=== PATIENT | female | born 2000 | race Caucasian/White ===

== ENCOUNTER 2025-10-07 21:58 | Emergency (ER) | payer OTHER, MEDICAID ==
[~2025-10-07] VITALS: Ht 157.5 cm; Wt 106.4 kg
[2025-10-07] MEDS: predniSONE 20 MG TAB PO ONE (22:48)
[2025-10-07] MEDS ORDERED: METH-1165 PO (23:52)
[2025-10-07] MEDS ORDERED: PRED10TA2 PO (23:52)
[2025-10-07 23:58] VITALS: BP 95/68; TEMP 96.2; O2SAT 100
== END 2025-10-08 | disposition home or self-care (01) ==
LOC: M ED 21:58
DX: G89.29 Other chronic pain (principal); M54.50 Low back pain, unspecified
CPT/HCPCS: 72110; 99284; J7512